=== PATIENT | female | born 1950 | race Caucasian/White ===

== ENCOUNTER 2021-01-10 11:00 | Outpatient (CLI) | payer MEDICARE, OTHER, SELFPAY ==
--- NOTE | ~2021-01-10 | XR_ITS ---
EXAMINATION: XR lumbar spine min 4V DATE: 01/10/2021 11:25 INDICATION: Low back pain TECHNIQUE: Anteroposterior, lateral, and bilateral oblique views of the lumbar spine, and cone-down l ateral view of the lumbosacral junction were obtained. COMPARISON: None FINDINGS: There is no fracture, dislocation, or subluxation. The vertebral body heights are maintaine d. There is mild loss of intervertebral disc space height in the lumbar spine. Small degenerative ost eophytes project from the anterior endplates of multiple vertebral bodies. Moderate facet osteoarthri tis is present in the lower lumbar spine. IMPRESSION: 1. Mild lumbar spondylosis without acute findings. Reviewed, dictated and finalized at location B. [facility]
== END 2021-01-10 11:01 | disposition home or self-care (01) ==
LOC: ANHIMG 11:05
PROVIDERS: PCP Family Medicine; Visit Provider Family Medicine
DX: M54.50 Low back pain, unspecified (principal); M47.816 Spondylosis without myelopathy or radiculopathy, lumbar region
CPT/HCPCS: 72110

== ENCOUNTER 2023-11-26 18:31 | Emergency (ER) | payer MEDICARE, OTHER, SELFPAY ==
--- NOTE | ~2023-11-26 | XR_ITS ---
EXAM: XR foot RT min 3V DATE: 11/26/2023 20:59 HISTORY: 1st metatarsal pain s/p fall . COMPARISON: None available. FINDINGS: Decreased mineralization. No fracture or dislocation. No lytic moderate hallux valgus. Mod erate degenerative change at the first MTP joint. No erosion or periosteal change. Soft tissues withi n normal limits. IMPRESSION: No acute osseous finding in the right foot. Reviewed, dictated and finalized at location K.
--- NOTE | ~2023-11-26 | CT_ITS ---
EXAMINATION: CT brain wo con DATE: 11/26/2023 21:14 INDICATION: fall, head injury . TECHNIQUE: Computed tomography (CT) of the head was performed without intravenous contrast. The mA wa s adjusted according to patient size. Iterative reconstruction technique was employed. The dose-lengt h product was 605.33 mGy-cm. COMPARISON: 06/23/2015. FINDINGS: No acute intracranial hemorrhage or extra-axial fluid collection. No hydrocephalus, mass, or herniation. No acute ischemic infarct. Unremarkable dural venous sinus attenuation. No acute osseous abnormality. The aerated spaces are clear. Mild atrophy and chronic white matter change. Atherosclerotic intracranial calcification. IMPRESSION: No acute intracranial process. Reviewed, dictated and finalized at location K.
--- NOTE | ~2023-11-26 | XR_ITS ---
EXAM: XR wrist RT min 3V DATE: 11/26/2023 19:20 HISTORY: WRIST INJURY S/P FALL . COMPARISON: None available. FINDINGS: Lateral view limited by obliquity. Decreased mineralization. Comminuted, mildly impacted f racture of the distal right radius, with intra-articular extension. Mildly distracted ulnar styloid f racture. No lytic or blastic lesion. Mild scattered degenerative change. No erosion or periosteal rick nge. Soft tissue swelling over the wrist. IMPRESSION: Comminuted, mildly impacted, intra-articular distal right radial fracture. Mildly distrac linda ulnar styloid fracture. Reviewed, dictated and finalized at location K. IMPRESSION: Comminuted, mildly impacted, intra-articular distal right radial fr acture. Mildly distracted ulnar styloid fracture.
[2023-11-26 18:58] VITALS: BP 118/61; PULSE 88; RESP 15; TEMP 36.4; O2SAT 97
--- NOTE | 2023-11-26 20:50 | ED.UPPEXIN ---
HPI - Extremity Injury (Upper) General Chief Complaint: Extremity Injury, Upper Stated Complaint: RIGHT WRIST INJURY Time Seen by Provider: 11/26/23 20:40 Source: patient Mode of arrival: ambulatory Limitations: no limitations History of Present Illness HPI narrative: This is a 73-year-old female with PMH of HTN, dilated cardiomyopathy, s/p ICD who presents to the ED with chief complaint of a fall that occurred this evening just prior to arrival. Patient was in the kitchen and on a stepstool, 2nd step. States that she took a misstep and fell down onto her right side. Reports that she landed on an outstretched right arm and has significant wrist pain on the right side. Also reports some right foot pain. States that she did hit the back of her head but did not have LOC. Denies vision change, numbness, weakness, neck pain, back pain or any further site of injury. Denies preceding chest pain, shortness of breath, palpitations, dizziness. Related Data Home Medications Medication Instructions Recorded Confirmed cholecalciferol (vitamin D3) 25 25 mcg PO DAILY 04/14/19 11/26/23 mcg (1,000 unit) capsule metoprolol succinate 25 mg 25 mg PO DAILY 04/14/19 11/26/23 tablet,extended release 24 hr (Toprol XL) calcium carbonate 500 mg PO BID 08/28/20 11/26/23 coenzyme Q10 200 mg capsule 200 mg PO DAILY 08/28/20 11/26/23 [id number] 8 mg-folic 400 1 tablet PO DAILY 08/28/20 11/26/23 mcg-K 50 mcg-lutein 300 mcg tablet ([facility]) rosuvastatin 5 mg tablet 5 mg PO 10/01/22 11/26/23 losartan 25 mg tablet mg PO 11/26/23 11/26/23 Allergies Allergy/AdvReac Type Severity Reaction Status Date / Time No Known Allergies Allergy Verified 11/26/23 10:22 Review of Systems Review of Systems: All systems as dictated in HPI [facility] Past Medical History Medical History History of chicken pox Scoliosis Family History Family History Mother Diabetes mellitus Hypertension Family history of elevated blood lipids Family history of coronary artery disease Father Hypertension, Onset Age: 69 Family history of elevated blood lipids, Onset Age: 69 Family history of lymphoma, Onset Age: 69 nonhodgkins lymphoma Family history of coronary artery disease, Onset Age: 69 Grandparent Family history of coronary artery disease Social History Social History (Updated 11/26/23 @ 10:24 by Ashley Hodges MA) Smoking status: Never smoker Alcohol intake: current Alcohol use details: socially Substance use: never Substance use type: does not use Do You Feel Safe in your Home?: Yes Lack of Transportation: No Lack of Food: Never True Current Housing: I Have Housing Concerned About Future Housing: No Difficulty Paying Gas/Electric Bills: No Difficulty Paying for Meds: No Currently Unemployed: No Education: Master's Degree or Higher Difficulty w/ Childcare or Family Care: No Exam Narrative: GENERAL: Well-appearing, well-nourished, and in no acute distress. HEAD: Normocephalic, atraumatic. Mild posterior occipital swelling. Minimal tenderness. EYES: PERRLA and EOMI. ENT: Nares clear, no rhinorrhea or epistaxis. Mucous membranes moist. Oropharynx without tonsillar hypertrophy exudate or other lesions. NECK: Supple. No adenopathy or masses. CHEST: No respiratory distress. Clear to auscultation. No wheezes rales or rhonchi HEART: Regular rate and rhythm. No murmur heard. Normal peripheral pulses. ABDOMEN: Soft, nontender, nondistended, normal active bowel sounds. MSK: RUE: Right wrist swelling and tenderness present. No deformity. Soft compartments. Neurovascular intact distally. LUE: Benign RLE: Tenderness over the 1st metatarsal of the right foot. No deformity. Neurovascularly intact distally. LLE: Benign SKIN: Warm, dry, no mary
[2023-11-26] MEDS: HYDROcodone/acetaminophen (*CRX) 5-325 MG TABLET 1 TAB PO (20:58)
[2023-11-26 22:40] VITALS: BP 125/68; PULSE 82; RESP 17; TEMP 37.2; O2SAT 100
== END 2023-11-26 22:45 | disposition home or self-care (01) ==
LOC: ANHED 21:21
PROVIDERS: Emergency Provider Physician Assistant; PCP Family Medicine
DX: S52.501A Unspecified fracture of the lower end of right radius, initial encounter for closed fracture (principal); M79.671 Pain in right foot; W19.XXXA Unspecified fall, initial encounter; I10 Essential (primary) hypertension
CPT/HCPCS: 29125; 70450; 73110; 73630; 99284; A4565; A9270